=== PATIENT | female | born 1950 | race Caucasian/White ===

== ENCOUNTER → 2016-05-23 | Outpatient (CLI) | payer MEDICARE ==
--- NOTE | 2016-05-24 11:28 | MM ---
Reason for exam: screening (asymptomatic). Last mammogram was performed 1 year and 1 month ago. History: Patient is postmenopausal. Family history of breast cancer in maternal grandmother at age 80. Took hormonal contraceptives for 2 years. Physical Findings: A clinical breast exam by your physician is recommended on an annual basis and results should be correlated with mammographic findings. MG Screening Mammo w CAD Bilateral CC and MLO view(s) were taken. Prior study comparison: April 27, 2015, bilateral MG screening mammo w CAD. April 16, 2014, bilateral MG screening mammo w CAD. The breast tissue is heterogeneously dense. This may lower the sensitivity of mammography. No significant changes when compared with prior studies. ASSESSMENT: Benign, BI-RAD 2 RECOMMENDATION: Routine screening mammogram of both breasts in 1 year.
== END | disposition home or self-care (01) ==
LOC: RADMAMWWP 08:37
PROVIDERS: ATTEND Family Medicine
DX: Z12.31 Encounter for screening mammogram for malignant neoplasm of breast (principal)

== ENCOUNTER → 2016-11-12 | Outpatient (CLI) | payer MEDICARE ==
[2016-11-12 18:58] LABS: Basophils % (A) 1 %; CH 32.2; Eosinophils # (A) 0.1 k/uL (0-0.7); Eosinophils % (A) 2 %; HCT 42.7 % (34.0-46.0); HDW 2.42; HGB 14.4 gm/dL (11.4-16.0); Luc # (Auto) 0.11; Luc % (Auto) 3; Lymphocytes # (A) 1.2 k/uL (1.0-4.8); Lymphocytes % (A) 31 %; MCH 33.1 pg (25.0-35.0); MCHC 33.8 g/dL (31.0-37.0); MCV 98.1 fL (80.0-100.0); Monocytes # (A) 0.3 k/uL (0-1.0); Monocytes % (A) 7 %; Neutrophils # (A) 2.2 k/uL (1.3-7.7); Neutrophils % (A) 56 %; RBC 4.35 m/uL (3.80-5.40); RDW 14.4 % (11.5-15.5); WBC 3.8 k/uL (3.8-10.6); WBC (Perox) 3.77
[2016-11-12 19:09] LABS: ALT 36 U/L (9-52); AST 29 U/L (14-36); Alkaline Phosphatase 86 U/L (38-126); Anion Gap 11 mmol/L; Blood Urea Nitrogen 14 mg/dL (7-17); Calcium 9.4 mg/dL (8.4-10.2); Carbon Dioxide 24 mmol/L (22-30); Chloride 110 mmol/L (98-107); Cholesterol 145 mg/dL (<200); Glucose 83 mg/dL (74-99); HDL Cholesterol 82 mg/dL (40-60); Non-African American GFR(MDRD) >60 (>60 ml/min/1.73 sqM); Potassium 4.1 mmol/L (3.5-5.1); Sodium 145 mmol/L (137-145); Total Bilirubin 0.8 mg/dL (0.2-1.3); Total Protein 6.7 g/dL (6.3-8.2); Triglycerides 59 mg/dL (<150)
== END ==
LOC: MMGSC 08:36
PROVIDERS: ATTEND Family Medicine
DX: Z00.00 Encounter for general adult medical examination without abnormal findings (principal); M81.0 Age-related osteoporosis without current pathological fracture; E03.9 Hypothyroidism, unspecified
CPT/HCPCS: 36415; 80053; 80061; 82306; 84439; 84443; 85025

== ENCOUNTER → 2017-06-06 | Outpatient (CLI) | payer MEDICARE ==
[2017-06-06 18:59] LABS: T4, Free (Free Thyroxine) 0.96 ng/dL (0.78-2.19)
== END | disposition home or self-care (01) ==
LOC: MMGSC 12:30
PROVIDERS: ATTEND Family Medicine
DX: E03.9 Hypothyroidism, unspecified (principal)
CPT/HCPCS: 36415; 84439; 84443

== ENCOUNTER → 2017-07-08 | Outpatient (CLI) | payer MEDICARE ==
--- NOTE | 2017-07-10 13:01 | MM ---
Reason for exam: screening (asymptomatic). Last mammogram was performed 1 year and 2 months ago. History: Patient is postmenopausal. Family history of breast cancer in maternal grandmother at age 80. Took hormonal contraceptives for 2 years. Physical Findings: A clinical breast exam by your physician is recommended on an annual basis and results should be correlated with mammographic findings. MG 3D Screening Mammo W/Cad Bilateral CC and MLO view(s) were taken. Prior study comparison: May 23, 2016, bilateral MG screening mammo w CAD. April 27, 2015, bilateral MG screening mammo w CAD. The breast tissue is heterogeneously dense. This may lower the sensitivity of mammography. Finding: There are typically benign round calcifications in both breasts. There is a chronic nodularity in the right breast. There is no discrete abnormality. ASSESSMENT: Benign, BI-RAD 2 RECOMMENDATION: Routine screening mammogram of both breasts in 1 year.
== END | disposition home or self-care (01) ==
LOC: RADMAMWWP 06:57
PROVIDERS: ATTEND Family Medicine
DX: Z12.31 Encounter for screening mammogram for malignant neoplasm of breast (principal)
CPT/HCPCS: 77063; 77067

== ENCOUNTER → 2017-10-16 | Outpatient (CLI) | payer MEDICARE ==
--- NOTE | 2017-10-16 15:46 | US ---
EXAMINATION TYPE: US abdomen complete DATE OF EXAM: 10/16/2017 COMPARISON: US 10/18/2010 CLINICAL HISTORY: R10.33 periumbilical pain. Difficult exam due to overlying bowel gas EXAM MEASUREMENTS: Liver Length: 13.1 cm Gallbladder Wall: Surgically absent CBD: 1.2 cm Spleen: 9.8 cm Right Kidney: 10.0 x 4.8 x 4.0 cm Left Kidney: 9.9 x 4.0 x 4.8 cm Pancreas: Obscured by bowel gas. Probable fluid filled stomach visualized within the epigastric area , as patient had drank water to fill bladder for pelvic ultrasound. Liver: Heterogeneous Gallbladder: Surgically absent Evidence for sonographic Sherwood's sign: No CBD: Minimally Dilated at 1.2 cm Spleen: wnl Right Kidney: No hydronephrosis or masses seen Left Kidney: No hydronephrosis or masses seen Upper IVC: wnl Abd Aorta: wnl IMPRESSION: No significant finding is seen to account for patient's symptoms. Postcholecystectomy davis nges are noted.
--- NOTE | 2017-10-16 15:48 | US ---
EXAMINATION TYPE: US pelvic complete DATE OF EXAM: 10/16/2017 COMPARISON: None CLINICAL HISTORY: R10.33 periumbilical pain. Total hysterectomy in 1989. TECHNIQUE: . Transabdominal sonographic images of the pelvis were acquired. Date of LMP: 1989 EXAM MEASUREMENTS: Uterus: Surgically absent Endometrial Stripe: Surgically absent Right Ovary: Surgically absent Left Ovary: Surgically absent 1. Uterus: Surgically absent 2. Endometrium: Surgically absent 3. Right Ovary: Surgically absent 4. Left Ovary: Surgically absent 5. Bilateral Adnexa: wnl 6. Posterior cul-de-sac: wnl Uterus is surgically absent. No free fluid is seen in pelvis. Scanning of level of umbilicus at site of pain shows no suspicious fat or bowel containing hernia. No worrisome fluid collection is seen. IMPRESSION: As above
== END | disposition home or self-care (01) ==
LOC: RADUSWWP 12:58
PROVIDERS: ATTEND Family Medicine
DX: R10.33 Periumbilical pain (principal); Z90.49 Acquired absence of other specified parts of digestive tract; Z90.711 Acquired absence of uterus with remaining cervical stump; Z90.722 Acquired absence of ovaries, bilateral
CPT/HCPCS: 76700; 76857

== ENCOUNTER → 2019-01-14 | Outpatient (CLI) | payer MEDICARE ==
--- NOTE | 2019-01-14 16:10 | BD ---
EXAMINATION TYPE: Axial Bone Density DATE OF EXAM: 01/14/2019 COMPARISON: NONE CLINICAL HISTORY: Postmenopausal symptoms Height: 65 Weight: 218.3 FRAX RISK QUESTIONS: Alcohol (3 or more units per day): no Family History (Parent hip fracture): no Glucocorticoids (More than 3mos): no (Ex: prednisone, prednisolone, methylprednisolone, dexamethasone, and hydrocortisone). History of Fracture in Adulthood: no Secondary Osteoporosis: 1. Type 1 Diabetes: no 2. Hyperthyroidism: no 3. Menopause before 45: yes 4. Malnutrition: no 5. Chronic liver disease: no Rheumatoid Arthritis: no Current Tobacco Use: no RISK FACTORS HISTORY OF: Family History of Osteoporosis: no Active: yes Diet low in dairy products/other sources of calcium: no Postmenopausal woman: hysterectomy age 39 Lost more than 2 inches in height since high school: just 2 inches MEDICATIONS: omeprazole Thyroid Medications: thyroid How Lon years Additional History: EXAM MEASUREMENTS: Bone mineral densitometry was performed using the [employer] System. Bone mineral density as measured about the Lumbar spine is: ----- L1-L4(G/cm2): 0.874 T Score Values are as follows: ----- L2: -2.6 ----- L3: -2.3 ----- L4: -2.6 ----- L1-L4: -2.6 Bone mineral density : baseline Bone mineral density about the R hip (g/cm2): 0.734 Bone mineral density about the L hip (g/cm2): 0.787 T Score values are as follows: -----R Neck: -2.2 -----L Neck: -1.8 -----R Total: -2.1 -----L Total: -1.2 Bone mineral density : baseline IMPRESSION: Osteoporosis (T Score less than -2.5). There is increased fracture risk and therapy is usually indicated based on age. Re-Screen 1-2 years. NOTE: T-SCORE=SD OF THE YOUNG ADULT MEAN.
--- NOTE | 2019-01-15 09:47 | MM ---
Reason for exam: screening (asymptomatic). Last mammogram was performed 1 year and 6 months ago. History: Patient is postmenopausal. Family history of breast cancer in maternal grandmother at age 80. Took hormonal contraceptives for 2 years. Physical Findings: A clinical breast exam by your physician is recommended on an annual basis and results should be correlated with mammographic findings. MG 3D Screening Mammo W/Cad Bilateral CC and MLO view(s) were taken. Prior study comparison: July 08, 2017, bilateral MG 3d screening mammo w/cad. May 23, 2016, bilateral MG screening mammo w CAD. The breast tissue is heterogeneously dense. This may lower the sensitivity of mammography. There are benign appearing round calcifications bilaterally. There is no discrete abnormality. No significant changes when compared with prior studies. ASSESSMENT: Benign, BI-RAD 2 RECOMMENDATION: Routine screening mammogram of both breasts in 1 year.
== END | disposition home or self-care (01) ==
LOC: RADMAMWWP 06:57
PROVIDERS: ATTEND Family Medicine
DX: Z12.31 Encounter for screening mammogram for malignant neoplasm of breast (principal); M81.0 Age-related osteoporosis without current pathological fracture
CPT/HCPCS: 77063; 77067; 77080

== ENCOUNTER → 2020-01-18 | Outpatient (CLI) | payer MEDICARE ==
--- NOTE | 2020-01-19 08:37 | MM ---
Reason for exam: screening (asymptomatic). Last mammogram was performed 1 year ago. History: Patient is postmenopausal. Family history of breast cancer in maternal grandmother at age 80. Took hormonal contraceptives for 2 years. Physical Findings: A clinical breast exam by your physician is recommended on an annual basis and results should be correlated with mammographic findings. MG 3D Screening Mammo W/Cad Bilateral CC and MLO view(s) were taken. Prior study comparison: January 14, 2019, bilateral MG 3d screening mammo w/cad. July 08, 2017, bilateral MG 3d screening mammo w/cad. The breast tissue is heterogeneously dense. This may lower the sensitivity of mammography. Benign calcifications. There is chronic nodularity in the right breast. No significant changes when compared with prior studies. ASSESSMENT: Benign, BI-RAD 2 RECOMMENDATION: Routine screening mammogram of both breasts in 1 year.
== END | disposition home or self-care (01) ==
LOC: RADMAMWWP 07:58
PROVIDERS: ATTEND Family Medicine
DX: Z12.31 Encounter for screening mammogram for malignant neoplasm of breast (principal)
CPT/HCPCS: 77063; 77067

== ENCOUNTER → 2021-01-18 | Outpatient (CLI) | payer MEDICARE ==
--- NOTE | 2021-01-19 12:05 | MM ---
Reason for exam: screening (asymptomatic). Last mammogram was performed 1 year ago. History: Patient is postmenopausal. Family history of breast cancer in maternal grandmother at age 80. Took hormonal contraceptives for 2 years. Physical Findings: A clinical breast exam by your physician is recommended on an annual basis and results should be correlated with mammographic findings. MG 3D Screening Mammo W/Cad Bilateral CC and MLO view(s) were taken. Prior study comparison: January 18, 2020, bilateral MG 3d screening mammo w/cad. January 14, 2019, bilateral MG 3d screening mammo w/cad. There are scattered fibroglandular densities. There is no discrete abnormality. No significant changes when compared with prior studies. ASSESSMENT: Negative, BI-RAD 1 RECOMMENDATION: Routine screening mammogram of both breasts in 1 year.
== END | disposition home or self-care (01) ==
LOC: RADMAMWWP 09:40
PROVIDERS: ATTEND Family Medicine
DX: Z12.31 Encounter for screening mammogram for malignant neoplasm of breast (principal); Z78.0 Asymptomatic menopausal state; Z80.3 Family history of malignant neoplasm of breast
CPT/HCPCS: 77063; 77067

== ENCOUNTER → 2022-02-22 | Outpatient (CLI) | payer MEDICARE ==
--- NOTE | 2022-02-23 07:59 | MM ---
Reason for Exam: Screening (asymptomatic). Last mammogram was performed 1 year(s) and 2 month(s) ago. Patient History: Menarche at age 10. First Full-Term at age 26. Left ovary removed at age 39. Right ovary removed at age 39. Hysterectomy at age 39. Postmenopausal. Patient used Hormonal Contraceptives for 2 years. Maternal grandmother had breast cancer, age 80. Risk Values: Lyssa 5 year model risk: 2.1%. NCI Lifetime model risk: 5.6%. Prior Study Comparison: 01/14/2019 Bilateral Screening Mammogram, [facility]. 01/18/2020 Bilateral Screening Mammogram, [facility]. 01/18/2021 Bilateral Screening Mammogram, [facility]. Tissue Density: There are scattered fibroglandular densities. Findings: Analyzed By CAD. Bilateral benign-appearing calcifications. There is no suspicious group of microcalcifications or new suspicious mass in either breast. Overall Assessment: Benign, BI-RAD 2 Management: Screening Mammogram of both breasts in 1 year. A clinical breast exam by your physician is recommended on an annual basis and results should be correlated with mammographic findings. [facility] will attempt to contact patient to return for supplemental views and ultrasound if indicated. Electronically signed and approved by: Deondre Wynn DO
== END | disposition home or self-care (01) ==
LOC: RADMAMWWP 08:01
PROVIDERS: ATTEND Family Medicine
DX: Z12.31 Encounter for screening mammogram for malignant neoplasm of breast (principal); Z78.0 Asymptomatic menopausal state; Z80.3 Family history of malignant neoplasm of breast
CPT/HCPCS: 77063; 77067

== ENCOUNTER → 2023-03-21 | Outpatient (CLI) | payer MEDICARE ==
--- NOTE | 2023-03-22 12:12 | MM ---
Reason for Exam: Screening (asymptomatic). Last screening mammogram was performed 12 month(s) ago. Patient History: Menarche at age 10. First Full-Term at age 26. Left ovary removed at age 39. Right ovary removed at age 39. Hysterectomy at age 39. Postmenopausal. Patient used Hormonal Contraceptives for 2 years. Maternal grandmother had breast cancer, age 80. Risk Values: Lyssa 5 year model risk: 2.2%. NCI Lifetime model risk: 5.3%. Prior Study Comparison: 01/18/2020 Bilateral Screening Mammogram, [facility]. 01/18/2021 Bilateral Screening Mammogram, [facility]. 02/22/2022 Bilateral MG 3D screening mammo w/cad, [facility]. Tissue Density: There are scattered fibroglandular densities. Findings: Analyzed By CAD. There is no suspicious group of microcalcifications or new suspicious mass. Overall Assessment: Negative, BI-RAD 1 Management: Screening Mammogram of both breasts in [address] [facility] will attempt to contact patient to return for supplemental views and ultrasound if indicated. Patient should continue monthly self-breast exams. A clinical breast exam by your physician is recommended on an annual basis. This exam should not preclude additional follow-up of suspicious palpable abnormalities. Note on Lyssa scores and lifetime risk: 1. A Lyssa score greater than 3% is considered moderate risk. If this is the case, consider specialist referral to assess eligibility for a risk reducing agent. 2. If overall lifetime risk for the development of breast cancer is 20% or higher, the patient may qualify for future screening with alternating mammogram and breast MRI. Electronically signed and approved by: Deondre Wynn DO
== END | disposition home or self-care (01) ==
LOC: RADMAMWWP 07:20
PROVIDERS: ATTEND Family Medicine
DX: Z12.31 Encounter for screening mammogram for malignant neoplasm of breast (principal); Z80.3 Family history of malignant neoplasm of breast; Z78.0 Asymptomatic menopausal state
CPT/HCPCS: 77063; 77067

== ENCOUNTER → 2024-03-20 | Outpatient (CLI) | payer MEDICARE ==
[2024-03-20 11:57] LABS: INR 0.9 (<1.2); Partial Thromboplastin Time 30.6 sec (22.0-30.0); Prothrombin Time 10.2 sec (10.0-12.5)
[2024-03-20 12:37] LABS: Appearance,Urine Clear (Clear); Bilirubin,Urine Negative (Negative); Blood,Urine Negative (Negative); Color,Urine Colorless; Glucose,Urine (UA) Negative (Negative); Ketones,Urine Negative (Negative); Leukocyte Esterase,Urine Small (Negative); Mucus,Urine Rare /hpf; Nitrite,Urine Negative (Negative); Protein,Urine Negative (Negative); RBC,Urine 1 /hpf (0-5); Specific Gravity,Urine 1.012 (1.001-1.035); Squamous Epithelial Cell,Urine 1 /hpf (0-4); Urobilinogen,Urine <2.0 mg/dL (<2.0); WBC,Urine 6 /hpf (0-5)
[2024-03-20 15:39] LABS: Basophils # (A) 0.02 X 10*3/uL (0.00-0.10); Basophils % (A) 0.5 %; Eosinophils # (A) 0.07 X 10*3/uL (0.04-0.35); Eosinophils % (A) 1.6 %; HCT 41.5 % (37.2-46.3); HGB 13.2 g/dL (12.0-15.0); Lymphocytes % (A) 27.1 %; MCHC 31.8 g/dL (32.0-37.0); MCV 100.5 FL (80.0-97.0); Mean Platelet Volume 10.1 FL (9.5-12.2); Monocytes # (A) 0.28 X 10*3/uL (0.20-1.00); Monocytes % (A) 6.3 %; NRBC Per 100 WBC 0 X 10*3/uL (0.00-0.01); Neutrophils # (A) 2.85 X 10*3/uL (1.80-7.70); Neutrophils % (A) 64.3 %; Platelet Count 185 X 10*3/uL (140-440); RBC 4.13 X 10*6/uL (4.10-5.20); RDW 13.4 % (11.5-14.5); WBC 4.43 X 10*3/uL (4.50-10.00)
[2024-03-20 15:51] LABS: ALT 25 U/L (8-44); AST 31 U/L (13-35); Albumin 4.3 g/dL (3.8-4.9); Albumin/Globulin Ratio 2.05 Ratio (1.60-3.17); Alkaline Phosphatase 90 U/L (41-126); Blood Urea Nitrogen 16.5 mg/dL (9.0-27.0); Calcium 9.2 mg/dL (8.7-10.3); Carbon Dioxide 24.5 mmol/L (21.6-31.8); Chloride 108 mmol/L (96-109); Globulin 2.1 g/dL (1.6-3.3); Glucose 94 mg/dL (70-110); Potassium 4.6 mmol/L (3.5-5.5); Sodium 142 mmol/L (135-145); Total Bilirubin 0.4 mg/dL (0.3-1.2); Total Protein 6.4 g/dL (6.2-8.2)
== END | disposition home or self-care (01) ==
LOC: LABWHC1 10:50
PROVIDERS: ATTEND Orthopaedic Surgery
DX: Z01.818 Encounter for other preprocedural examination (principal)
CPT/HCPCS: 36415; 80053; 81001; 85025; 85610; 85730

== ENCOUNTER → 2024-07-08 | Outpatient (CLI) | payer MEDICARE ==
--- NOTE | 2024-07-08 15:05 | MM ---
Reason for Exam: Screening (asymptomatic). Last mammogram was performed 1 year(s) and 4 month(s) ago. Patient History: Menarche at age 10. First Full-Term at age 26. Left ovary removed at age 39. Right ovary removed at age 39. Hysterectomy at age 39. Postmenopausal. Patient used Hormonal Contraceptives for 2 years. Maternal grandmother had breast cancer, age 80. Risk Values: Lyssa 5 year model risk: 2.2%. NCI Lifetime model risk: 5.0%. Prior Study Comparison: 01/18/2021 Bilateral Screening Mammogram, [facility]. 02/22/2022 Bilateral MG 3D screening mammo w/cad, [facility]. 03/21/2023 Bilateral MG 3D screening mammo w/cad, [facility]. Tissue Density: The breasts are heterogeneously dense, which may obscure small masses. Findings: Analyzed By CAD. There are scattered and loosely grouped tiny benign appearing round calcifications throughout the bilateral breasts redemonstrated. There is no suspicious new group of microcalcifications or new suspicious mass in either breast. Overall Assessment: Benign, BI-RAD 2 Management: Screening Mammogram of both breasts in 1 year. . Patient should continue monthly self-breast exams. A clinical breast exam by your physician is recommended on an annual basis. This exam should not preclude additional follow-up of suspicious palpable abnormalities. Note on Lyssa scores and lifetime risk: 1. A Lyssa score greater than 3% is considered moderate risk. If this is the case, consider specialist referral to assess eligibility for a risk reducing agent. 2. If overall lifetime risk for the development of breast cancer is 20% or higher, the patient may qualify for future screening with alternating mammogram and breast MRI. [facility], , 07/08/2024 3:00 PM. Electronically signed and approved by: Elbert Gauthier M.D.
== END | disposition home or self-care (01) ==
LOC: RADMAMWWP 14:30
PROVIDERS: ATTEND Family Medicine
DX: Z12.31 Encounter for screening mammogram for malignant neoplasm of breast (principal); R92.333 Mammographic heterogeneous density, bilateral breasts; Z78.0 Asymptomatic menopausal state; Z92.0 Personal history of contraception
CPT/HCPCS: 77063; 77067

== ENCOUNTER → 2024-09-04 | Outpatient (CLI) | payer MEDICARE ==
--- NOTE | 2024-09-04 11:42 | XR ---
EXAMINATION TYPE: XR thoracic spine complete DATE OF EXAM: 09/04/2024 11:10 AM COMPARISON: None CLINICAL INDICATION: Female, 73 years old with history of M54 pain; PHH, pain TECHNIQUE: XR thoracic spine complete views of the spine in Frontal, swimmers and lateral projections . FINDINGS: No evidence of acute fracture. There is scattered multilevel disk space narrowing without loss of ve rtebral body height. There is normal alignment of the thoracic vertebral bodies. Scattered osteophyte formation along the anterior and lateral aspects of the vertebral bodies. Neural foramen are patent given limitations of this exam. Spinal canal appears patent. IMPRESSION: 1. No acute osseous pathology. 2. [id number] multilevel degeneration changes of the spine. [facility], , 09/04/2024 11:40 AM
== END | disposition home or self-care (01) ==
LOC: RADXRMAIN 10:44
PROVIDERS: ATTEND Family Medicine
DX: M47.814 Spondylosis without myelopathy or radiculopathy, thoracic region (principal)
CPT/HCPCS: 72072